=== PATIENT | female | born 1955 | race African-American/Black ===

== ENCOUNTER 2023-07-02 10:27 | Emergency (ER) | payer MEDICARE ==
[~2023-07-02] VITALS: Ht 160 cm; Wt 97.2 kg
[2023-07-02] MEDS ORDERED: ACETAMINOPHEN 325 MG TAB ONE (11:12)
[2023-07-02] MEDS ORDERED: IBUPROFEN 600 MG TAB ONE (11:12)
[2023-07-02] MEDS ORDERED: ACETAMINOPHEN 325 MG TAB PO ONE (11:15)
[2023-07-02] MEDS ORDERED: IBUPROFEN 600 MG TAB PO STA (11:15)
[2023-07-02] MEDS ORDERED: IBUPROFEN 200 MG TAB PO ONE (11:30)
[2023-07-02] MEDS ORDERED: ENOXAPARIN SODIUM INJ 100 MG/ML SYR SC STA (14:16)
[2023-07-02] MEDS ORDERED: ELIQUIS5 MG PO (14:19)
[2023-07-02] MEDS ORDERED: TYLENOL325 MG PO (14:19)
[2023-07-02] MEDS ORDERED: ENOXAPARIN SODIUM INJ 100 MG/ML SYR SC ONE (14:52)
[2023-07-02 15:11] VITALS: O2SAT 99
== END 2023-07-02 15:11 | disposition home or self-care (01) ==
LOC: FSED 10:38
DX: G89.18 Other acute postprocedural pain (principal); I82.432 Acute embolism and thrombosis of left popliteal vein; M79.89 Other specified soft tissue disorders; Z96.652 Presence of left artificial knee joint; I10 Essential (primary) hypertension; E78.5 Hyperlipidemia, unspecified; K21.9 Gastro-esophageal reflux disease without esophagitis; M54.9 Dorsalgia, unspecified; G89.29 Other chronic pain
CPT/HCPCS: 93971 ×2; 96372; 99284; J1650